=== PATIENT | male | born 1965 | race Two or more races ===

== ENCOUNTER → 2024-11-17 | Outpatient (CLI) | payer MEDICAID, SELFPAY ==
--- NOTE | 2024-11-17 10:56 | XR_ITS ---
Examination: Left knee 2 views TECHNIQUE: AP lateral left knee 2 views Exam daytime: November 17, 2024 1226 hours INDICATIONS: Left knee pain several years. FINDINGS: Moderate to advanced medial joint space Moderate to advanced osteoarthritis patellofemoral joint No fracture IMPRESSION: Moderate to advanced tricompartment osteoarthritis
== END | disposition home or self-care (01) ==
PROVIDERS: PCP Nurse Practitioner Family; Referring Provider Nurse Practitioner Family; Visit Provider Nurse Practitioner Family
DX: M17.12 Unilateral primary osteoarthritis, left knee (principal)
CPT/HCPCS: 73560

== ENCOUNTER → 2025-02-20 | Outpatient (CLI) | payer MEDICAID, SELFPAY ==
--- NOTE | 2025-02-20 07:15 | XR_ITS ---
Examination: Ultrasound abdominal aorta Date and time: February 20, 2025 0737 hours INDICATIONS: Smoking history years TECHNIQUE AND FINDINGS: Grayscale sonographic images abdominal aorta Transverse dimension proximal aorta obscured by bowel gas as well as mid aorta Distal aorta 1.9 cm transverse dimension, right iliac 1.3 cm left iliac 1.5 cm IMPRESSION: Limited study Infrarenal abdominal aorta is not dilated
== END | disposition home or self-care (01) ==
LOC: CDIM 07:30
PROVIDERS: PCP Nurse Practitioner Family; Referring Provider Nurse Practitioner Family; Visit Provider Nurse Practitioner Family
DX: Z87.891 Personal history of nicotine dependence (principal)
CPT/HCPCS: 76770